=== PATIENT | male | born 1990 | race Caucasian/White ===

== ENCOUNTER → 2024-05-07 | Outpatient (CLI) | payer MEDICAID, SELFPAY ==
--- NOTE | 2024-05-07 09:29 | XR_ITS ---
MRI abdomen, without contrast. MRCP Date and time of exam: May 07, 2024 1058 hours INDICATIONS: Cholecystectomy 2 years ago followed by right upper abdominal pain stabbing pain one year Technique: Multiple axial and coronal images of the abdomen have been obtained with the Siemens 1.5T MRI scanner. Images obtained included T1 weighted transverse images, T2-weighted transverse images, T2-weighted transverse images fat-suppressed, T2 weighted haste fat suppressed transverse images, T1 weighted images, in and out of phase images, T2-weighted coronal images, breath hold, T2 weighted haze coronal images as well as T2 weighted coronal thick slab images, MRCP. Findings: No focal liver lesions or intrahepatic biliary tract dilatation Absent gallbladder Common hepatic common bile duct 2.5 mm no stones No pancreatic mass or peripancreatic edema Pancreatic duct is not dilated Spleen is not enlarged No hydronephrosis No ascites No adrenal mass Aorta normal size IMPRESSION: Absent gallbladder Normal common hepatic common bile ducts
== END | disposition home or self-care (01) ==
LOC: SDIM 09:13
PROVIDERS: PCP Nurse Practitioner Family; Referring Provider Internal Medicine Gastroenterology; Visit Provider Internal Medicine Gastroenterology
DX: R10.9 Unspecified abdominal pain (principal); Z90.49 Acquired absence of other specified parts of digestive tract
CPT/HCPCS: S8037; 74181